=== PATIENT | female | born 1990 | race Caucasian/White ===

== ENCOUNTER 2022-03-02 11:19 | Emergency (ER) | payer OTHER, SELFPAY ==
[2022-03-02 11:31] VITALS: BP 137/82; PULSE 66; RESP 14; TEMP 36.6; O2SAT 100
--- NOTE | 2022-03-02 13:01 | ED.DENTAL ---
HPI - Dental/Oral General Chief complaint: Dental/Oral Stated complaint: tooth pain Source: patient Mode of arrival: ambulatory Limitations: no limitations History of Present Illness HPI Narrative: 31-year-old female presents to [facility] complains of left upper tooth pain for the past 2 weeks. Patient reports that she has been attempting to get a hold of her dentist with no success. The patient has been taking [id number] Tylenol with minimal relief. Patient denies fevers, nausea, vomiting or diarrhea. MD Complaint: tooth pain Location: Tooth # (14) Onset (ago): week(s) (2) Duration: constant Relieving factors: nothing Exacerbating factors: chewing and cold Context: history of dental caries Treatment prior to arrival: oral analgesic Related Data Home Medications Medication Instructions Recorded Confirmed norethindrone (contraceptive) 0.35 0.35 mg PO DAILY 04/19/21 03/02/22 mg tablet Allergies Allergy/AdvReac Type Severity Reaction Status Date / Time Penicillins Allergy Unknown Unknown Unverified 03/02/22 12:15 Review of Systems Constitutional: Constitutional: Denies chills, Denies fatigue, Denies fever(s) and Denies weakness ENT: Denies dizziness Comments: Left upper dental pain Cardiovascular: Cardiovascular: Denies chest pain Respiratory: Respiratory: Denies cough, Denies dyspnea and Denies wheezing Gastrointestinal: Gastrointestinal: Denies abdominal pain, Denies diarrhea, Denies nausea and Denies vomiting Integumentary/Breasts: Skin/Breast: Denies rash Allergic/Immunologic: Allergic/Immunologic: Denies throat swelling, Denies tongue swelling and Denies wheezing PMFSH Past Medical History Medical History Allergies Surgical History Surgical History H/O section 2016 Social History Social History Smoking status: Never smoker Alcohol intake: never Comments At time of signature, I agree with nursing past medical, surgical, social and family history. There is no relevant family history pertinent to the presenting complaint. Exam Const: General: healthy appearing, no acute distress and alert Nutritional Appearance: well nourished Orientation/consciousness: patient oriented x3 Limitations: no limitations HENMT: Teeth and gingiva: abnormal tooth and associated gingiva upper left Throat: posterior oropharynx normal and uvula midline Other: Mild erythema and moderate pain noted to left tooth #14. There is no active abscess noted. Marked decay is noted to tooth. Neck: Neck: normal visual inspection Resp: Effort & Inspection: normal respiratory effort and not labored Auscultation: clear to auscultation bilaterally, no crackles, no rales and no rhonchi Cardio: Rate: regular rate Rhythm: regular rhythm Heart sounds: no murmurs Skin: General skin exam: normal color Rashes: no rashes Wounds: no wounds Neuro: General: patient oriented x3 Gait exam (Neuro): Normal gait present Psych: Affect: normal affect Attitude: cooperative Course Course Level of Care: Express Care Visit Vital Signs Vital signs: Vital Signs Temperature 36.6 C 03/02/22 11:31 Pulse Rate 66 03/02/22 11:31 Respiratory Rate 14 03/02/22 11:31 Blood Pressure 137/82 03/02/22 11:31 Pulse Oximetry 100 03/02/22 11:31 Oxygen Delivery Room Air 03/02/22 11:31 Temperature 36.6 C 03/02/22 11:31 Pulse Rate 66 03/02/22 11:31 Respiratory Rate 14 03/02/22 11:31 Blood Pressure 137/82 03/02/22 11:31 Pulse Oximetry 100 03/02/22 11:31 Oxygen Delivery Room Air 03/02/22 11:31 MDM - Dental/Oral MDM Narrative Medical decision making narrative: Instructed patient to follow-up with primary care provider soon as possible. Patient agrees to take medication as prescribed. Patient agrees to alternat
== END 2022-03-02 13:10 | disposition home or self-care (01) ==
PROVIDERS: Emergency Provider Nurse Practitioner Family
DX: K08.89 Other specified disorders of teeth and supporting structures (principal)
CPT/HCPCS: 99213; G0463